=== PATIENT | female | born 1960 | race Caucasian/White ===

== ENCOUNTER 2019-09-23 08:48 | Emergency (ER) | payer BC ==
[2019-09-23 09:04] VITALS: BP 131/79
[2019-09-23 09:17] LABS: Influenza A Molecular POSITIVE (Negative)
--- NOTE | 2019-09-23 09:30 | UC ---
FLU HPI - HPI Summary HPI Summary: Pt presents with c/o sudden onset of fever, chills, body aches X 3 days. Also , c/o cough X 1 month. - History of Current Complaint Chief Complaint: UCRespiratory Stated Complaint: FEVER,AVILA,ACHES Time Seen by Provider: 09/23/19 09:14 Hx Obtained From: Patient ?: No Onset/Duration: Sudden Onset, Lasting Days, Still Present Severity Currently: Moderate Severity Initially: Moderate Pain Intensity: 3 Associated Signs & Symptoms: Positive: Fever, Myalgia, Cough, Nasal Congestion Related Hx: Possible Flu/Infectious Exposure - Risk Factors Influenza Risk Factors: Negative - Allergy/Home Medications Allergies/Adverse Reactions: Allergies Allergy/AdvReac Type Severity Reaction Status Date / Time No Known Allergies Allergy Verified 09/23/19 08:59 Home Medications: Home Medications Ibuprofen TAB* [Advil TAB*] 600 mg PO Q6H PRN 09/23/19 [History Confirmed ] PMH/Surg Hx/FS Hx/Imm Hx Previously Healthy: Yes - Surgical History Surgical History: Yes Surgery Procedure, Year, and Place: polyp vocal cord. uterine/ovarian. meniscus - Family History Known Family History: Positive: Cardiac Disease - Social History Occupation: Retired Lives: With Family Alcohol Use: Weekly Substance Use Type: None Smoking Status (MU): Never Smoked Tobacco Have You Smoked in the Last Year: No - Immunization History Most Recent Influenza Vaccination: does not get Vaccination Up to Date: No Review of Systems All Other Systems Reviewed And Are Negative: Yes Constitutional: Positive: Fever, Chills, Fatigue Skin: Positive: Negative Eyes: Positive: Negative ENT: Positive: Sinus Congestion, Sinus Pain/Tenderness Respiratory: Positive: Cough Cardiovascular: Positive: Negative Gastrointestinal: Positive: Negative Genitourinary: Positive: Negative Motor: Positive: Negative Neurovascular: Positive: Negative Musculoskeletal: Positive: Myalgia Neurological: Positive: Negative Psychological: Positive: Negative Is Patient Immunocompromised?: No Physical Exam Triage Information Reviewed: No Appearance: Ill-Appearing Vital Signs: Initial Vital Signs Temp 100 F 09/23/19 09:00 Pulse 81 09/23/19 09:00 Resp 15 09/23/19 09:00 BP 131/79 09/23/19 09:00 Pulse Ox 97 09/23/19 09:00 Vital Signs Reviewed: Yes Eye Exam: Normal ENT: Positive: Nasal congestion Dental Exam: Normal Neck exam: Normal Respiratory Exam: Normal Cardiovascular Exam: Normal Musculoskeletal Exam: Normal Neurological Exam: Normal Psychological Exam: Normal Skin Exam: Normal Flu Course/Dx - Differential Dx/Diagnosis Differential Diagnosis/HQI/PQRI: Influenza, Upper Respiratory Infection Provider Diagnosis: Influenza A Discharge ED - Sign-Out/Discharge Documenting (check all that apply): Patient Departure All imaging exams completed and their final reports reviewed: No Studies - Discharge Plan Condition: Stable Disposition: HOME Prescriptions: Oseltamivir CAP* [Tamiflu CAP*] 75 mg PO Q12H #10 cap predniSONE TAB* [Deltasone 10 MG TAB*] 30 mg PO DAILY #12 tab Patient Education Materials: Influenza (ED) Referrals: Jinny Dioxn MD [Primary Care Provider] - If Needed - Billing Disposition and Condition Condition: STABLE Disposition: Home
== END 2019-09-23 09:37 | disposition home or self-care (01) ==
LOC: UCCORT 08:48
DX: J10.1 Influenza due to other identified influenza virus with other respiratory manifestations (principal)
CPT/HCPCS: 99212; G0463

== ENCOUNTER 2019-09-27 10:56 | Emergency (ER) | payer BC ==
[2019-09-27 11:09] VITALS: BP 154/96
--- NOTE | 2019-09-27 11:31 | UC ---
Respiratory Complaint HPI - HPI Summary HPI Summary: 59-year-old woman comes in with chief complaint of shortness of breath. Patient 's been ill for more than a week. She was diagnosed with influenza on September 23, 2019. She's had decreased by mouth intake. Last couple patient's been becoming short of breath. She is also having some chest pain and having episodes where her heart is racing and then she's getting extra beats. - History of Current Complaint Chief Complaint: UCChestPain Stated Complaint: SOB Time Seen by Provider: 09/27/19 11:11 Pain Intensity: 5 - Allergies/Home Medications Allergies/Adverse Reactions: Allergies Allergy/AdvReac Type Severity Reaction Status Date / Time No Known Allergies Allergy Verified 09/27/19 10:59 PMH/Surg Hx/FS Hx/Imm Hx Previously Healthy: Yes - Surgical History Surgical History: Yes Surgery Procedure, Year, and Place: polyp vocal cord. uterine/ovarian. meniscus - Family History Known Family History: Positive: Cardiac Disease - Social History Alcohol Use: Weekly Substance Use Type: None Smoking Status (MU): Never Smoked Tobacco Have You Smoked in the Last Year: No - Immunization History Most Recent Influenza Vaccination: does not get Vaccination Up to Date: No Review of Systems All Other Systems Reviewed And Are Negative: Yes Constitutional: Positive: Other - see hpi Skin: Positive: Negative Eyes: Positive: Negative ENT: Positive: Other - see hpi Respiratory: Positive: Shortness Of Breath Cardiovascular: Positive: Palpitations, Chest Pain Gastrointestinal: Positive: Other - see hpi Motor: Positive: Weakness - generalized Neurovascular: Positive: Negative Musculoskeletal: Positive: Negative Neurological: Positive: Weakness - generalized Psychological: Positive: Negative Is Patient Immunocompromised?: No Physical Exam Triage Information Reviewed: Yes Appearance: No Pain Distress, Well-Nourished, Ill-Appearing - mild/moderate Vital Signs: Initial Vital Signs Temp 98 F 09/27/19 11:00 Pulse 70 09/27/19 11:00 Resp 24 09/27/19 11:00 BP 154/96 09/27/19 11:00 Pulse Ox 100 09/27/19 11:00 Vital Signs Reviewed: Yes Eye Exam: Normal Eyes: Positive: Conjunctiva Clear Neck: Positive: Supple Respiratory: Positive: Rhonchi Cardiovascular: Positive: RRR Musculoskeletal: Positive: ROM Intact Neurological: Positive: Alert, Fatigued Psychological: Positive: Age Appropriate Behavior Skin Exam: Normal Diagnostics - EKG Cardiac Rate: NL - AT 1101 Cardiac Rhythm: Sinus: Normal - 72BPM Ectopy: PVCs ST Segment: Normal Summary of EKG Findings: Incomplete right bundle branch block seen on prior EKG 07/11/11 Respiratory Course/Dx - Course Course Of Treatment: I discussed the EKG with the patient. I do not see any ischemic changes or significant dysrhythmias on the EKG. Vital signs were stable. With the concern of shortness of breath chest pain and palpitations a recommended further evaluation in the emergency department. Patient declined ambulance transport and has a friend to drive her by POV. - Differential Dx/Diagnosis Provider Diagnosis: Shortness of breath, Chest pain, Palpitations Discharge ED - Sign-Out/Discharge Documenting (check all that apply): Patient Departure All imaging exams completed and their final reports reviewed: No Studies - Discharge Plan Condition: Stable Disposition: HOME-RECOMMEND TO ED Patient Education Materials: Chest Pain (ED), Heart Palpitations (ED), Shortness of Breath (ED) Referrals: Jinny Dixon MD [Primary Care Provider] - Additional Instructions: GO DIRECTLY TO THE EMERGENCY DEPARTMENT FOR FURTHER EVALUATION AND CARE. - Billing Disposition and Condition Condition: STABLE Disposition: Home-Recommend to ED
== END 2019-09-27 11:48 | disposition home health service (06) ==
LOC: UCCORT 10:56
DX: R06.02 Shortness of breath (principal); R07.9 Chest pain, unspecified; R00.2 Palpitations
CPT/HCPCS: 93005; 99212; G0463